=== PATIENT | male | born 1975 | race Caucasian/White ===

== ENCOUNTER 2016-11-29 05:34 | Day surgery (SDC) | payer MEDICAID ==
[2016-11-28 14:18] LABS: HEMATOCRIT 41.3 % (42.0-54.0); HEMOGLOBIN 13.7 g/dL (13.5-17.5); MCH 29.6 pg (26.0-34.0); MCHC 33.2 g/dL (31.0-37.0); MCV 89.2 fL (80.0-100.0); MEAN PLATELET VOLUME 10.1 fL (7.4-10.4); RBC 4.63 10x6/uL (4.20-6.10); RDW 13.4 % (11.5-14.5); WBC 4.3 10x3/uL (4.8-10.8)
[~2016-11-29] VITALS: Ht 162.6 cm; Wt 77.1 kg
[~2016-11-29 05:34] MED LIST: ACETAMINOPHEN500 M1 PO; BAYER CHEWABLE81 MG PO; CELEXA20 MG PO; DILANTIN100 MG PO; FENOFIBRATE134 MG PO; FLOMAX0.4 MG PO; GABAPENTIN100 MG PO; HYDROCHLOROTH12.5 M1 PO; HYDROCODONE-APA1 TAB PO; K-DUR20 MEQ PO; MOBIC7.5 MG PO; MS CONTIN30 MG PO; NEURONTIN 300300 MG PO; NORVASC5 MG PO; PREVACID30 MG PO; TENORMIN25 MG PO; TRICOR145 MG PO; XANAX1 MG PO; ZANTAC150 MG PO
[2016-11-29] MEDS ORDERED: DEPAKOTE250 MG PO (08:31)
[2016-11-29] MEDS ORDERED: OXYCONTIN15 MG PO (08:33)
[2016-11-29 08:39] VITALS: BP 132/76; Ht 162.6 cm; Wt 77.1 kg
[2016-11-29] MEDS ORDERED: DILAUDID2 MG PO (11:00)
--- NOTE | 2016-11-29 11:16 | NUR ---
THE PATIENT REQUESTED A SHORT STAY DUE TO THE NEED TO URINATE. URINAL OFFERED AND DENIED
--- NOTE | 2016-11-29 13:50 | NUR ---
1200 IV DC WITH CATHER TIP INTACT
--- NOTE | 2016-12-01 10:48 | OP ---
PATIENT NAME: DESTINI SAN MEDICAL RECORD: [id number] :71 [facility] ADMISSION DATE: SURGEON: MICHELLE SANTIAGO MD DATE OF OPERATION: 11/29/2016 PREOPERATIVE DIAGNOSES: Severe biceps tendinitis, impingement syndrome, acromioclavicular arthritis with possible rotator cuff tear. POSTOPERATIVE DIAGNOSES: Severe biceps tendinitis, impingement syndrome, acromioclavicular arthritis. PROCEDURES: 1. Biceps tenodesis. 2. Subacromial decompression. 3. Distal clavicle excision -- 1 cm down through separate incision arthroscopically. SURGEON: Michelle Santiago MD. ANESTHESIA: General. INTRAOPERATIVE COMPLICATIONS: None. SUMMARY OF PATHOLOGIC FINDINGS: As predicted, the patient has severe biceps tendinitis, impingement syndrome, partial-thickness rotator cuff tearing and acromioclavicular arthritis. OPERATIVE SUMMARY IN DETAIL: After obtaining the appropriate preoperative orthopedic surgery consent as well as anesthetic consultation, evaluation and clearance, the patient was brought to the operating room and placed on the operating table in supine position. After general laryngeal mask was administered, the patient was placed in the right lateral decubitus position. All pressure points were well padded to include down leg peroneal pad as well as axillary roll. The patient was held firmly to the operating table using the vacuum pack suction system. Left upper extremity and shoulder were prepped and draped in routine sterile fashion. The arm was held in the Arthrex traction boom at 30 degrees of forward flexion, 30 degrees of abduction with 10 pounds of traction laterally. Arthroscopy was established in the glenohumeral joint from a posterior portal. Anterior portal was established in the anterior safe interval. Diagnostic arthroscopy did reveal the above finding. Spinal needle was used to stabilize the biceps tendon. Percutaneously, the biceps was then tenotomized. Arthroscopy was established in the subacromial space where a surface tissue ablation system was utilized to denude the undersurface of the acromion of all soft tissue elements. A 5-0 barrel althea was used to perform acromioplasty at the level of acromioclavicular joint. Having completed this, through a separate anterior arthroscopic portal, distal clavicle was excised for 1 cm. At this point, the biceps tendon was pulled out of the skin. A FiberLoop was then utilized at the appropriate position on the biceps tendon. An 8-mm drill hole was placed and the biceps tenotomy screw was placed completing this tenotomy of the biceps in the lower groove. Wound was irrigated and closed in usual fashion. Sterile dressings were applied. The patient was awakened, taken to recovery room in stable condition. All final needle and sponge counts were correct. TRANSINT:[id number] Voice Confirmation ID: [id number] DOCUMENT ID: [id number] OPERATIVE REPORT [id number] DESTINI SAN MD, MICHELLE DEAN at 1048 CC: [id number] DICTATION DATE: 11/29/16 1103 GROUT MACHINE OPERATOR: 11/29/16 1245 [facility] 11/29/[address] [address]
== END 2016-11-29 12:45 | disposition home or self-care (01) ==
LOC: D.OPS 05:34 → D.PAN 10:00 → D.OPS 10:00 → D.PAN 12:45
PROVIDERS: Anesthesiology
DX: M75.22 Bicipital tendinitis, left shoulder (principal); M75.42 Impingement syndrome of left shoulder; M13.812 Other specified arthritis, left shoulder

== ENCOUNTER 2019-01-30 13:28 | Emergency (ER) | payer MEDICAID ==
[~2019-01-30] VITALS: Ht 162.6 cm; Wt 73.6 kg
[~2019-01-30 13:28] MED LIST changes: +DEPAKOTE250 MG PO; +DILAUDID2 MG PO; +OXYCONTIN15 MG PO
[2019-01-30 13:35] VITALS: Ht 162.6 cm; Wt 73.6 kg
[2019-01-30] MEDS ORDERED: XANAX1 MG PO (13:43)
[2019-01-30] MEDS ORDERED: CYMBALTA60 MG PO (13:44)
[2019-01-30] MEDS ORDERED: TOPROL XL25 MG PO (13:45)
[2019-01-30] MEDS ORDERED: HYSINGLA ER20 MG PO (13:46)
[2019-01-30] MEDS ORDERED: OXYCONTIN10 MG PO (13:47)
[2019-01-30] MEDS ORDERED: PRAVACHOL40 MG PO (13:49)
[2019-01-30] MEDS ORDERED: HYDROCHLOROTH12.5 M1 PO (13:49)
[2019-01-30] MEDS ORDERED: MOBIC7.5 MG PO (13:50)
[2019-01-30 14:51] LABS: BASOPHILS 0.1 % (0-2); EOSINOPHILS 0 % (0-7); HEMATOCRIT 50.3 % (42.0-54.0); IMMATURE GRANULOCYTES 0.1 % (0-5); LYMPHOCYTES 17.1 % (15-50); MCH 28.2 pg (26.0-34.0); MCHC 33.8 g/dL (31.0-37.0); MCV 83.4 fL (80.0-100.0); MEAN PLATELET VOLUME 10.5 fL (7.4-10.4); MONOCYTES 7.2 % (2-11); NEUTROPHILS 75.5 % (40-80); PLATELET COUNT 146 10x3/uL (130-400); RBC 6.03 10x6/uL (4.20-6.10); RDW 14.7 % (11.5-14.5); WBC 7.3 10x3/uL (4.8-10.8)
[2019-01-30 14:55] LABS: ALBUMIN 3.6 g/dL (3.4-5.0); ANION GAP 10.6 mmol/L (8-16); BILIRUBIN - TOTAL 1.72 mg/dL (0.2-1.3); CALCIUM 8.8 mg/dL (8.5-10.1); CARBON DIOXIDE 30.8 mmol/L (21.0-32.0); CREATININE - SERUM 1.2 mg/dL (0.6-1.3); POTASSIUM - SERUM 3.4 mmol/L (3.5-5.1); PROTEIN - SERUM 6.5 g/dL (6.4-8.2); VALPROIC ACID (DEPAKOTE) 41.8 ug/mL (50.0-100.0)
[2019-01-30 15:42] LABS: UDS - AMPHET POSITIVE QUAL (NEGATIVE); UDS - BARB NEGATIVE QUAL (NEGATIVE); UDS - BENZO POSITIVE QUAL (NEGATIVE); UDS - COCAINE NEGATIVE QUAL (NEGATIVE); UDS - OPIATE POSITIVE QUAL (NEGATIVE); UDS - PCP NEGATIVE QUAL (NEGATIVE); UDS - THC POSITIVE QUAL (NEGATIVE)
[2019-01-30 15:46] VITALS: BP 143/73
[2019-01-30 16:21] LABS: APPEARANCE CLEAR (CLEAR); BILIRUBIN NEGATIVE (NEGATIVE); COLOR YELLOW (YELLOW); GLUCOSE NEGATIVE (NEGATIVE); KETONE LARGE mg/dL (NEGATIVE); NITRITE NEGATIVE (NEGATIVE); PROTEIN NEGATIVE (NEGATIVE)
[2019-01-30 16:22] LABS: BACTERIA MODERATE /hpf (NONE SEEN); RED CELLS - URINE 0-5 /hpf (0-5)
== END 2019-01-30 15:46 | disposition home or self-care (01) ==
LOC: D.ER 13:28
PROVIDERS: Emergency Medicine
DX: F19.10 Other psychoactive substance abuse, uncomplicated (principal); F32.9 Major depressive disorder, single episode, unspecified